=== PATIENT | male | born 1970 | race Caucasian/White ===

== ENCOUNTER 2018-06-02 20:35 | Emergency (ER) | payer MEDICAID, OTHER ==
[~2018-06-02] VITALS: Ht 162.6 cm; Wt 58.0 kg
[~2018-06-02 20:35] MED LIST: ASPI-1158 PO; CALC-30 PO; FERR325T6 PO; GABA-531 PO; INSU100I28 SQ; INSU100V3 SUBCUT; NIFE30TA83 PO; SEVE800T8 PO
[2018-06-02] MEDS ORDERED: SODIUM CHLORIDE 0.9% 250 ML IV ONE (21:11)
[2018-06-02 22:04] LABS: BASOPHILS % 1.2 % (0.0-2.0); EOSINOPHILS % 5.2 % (0.0-5.0); HEMATOCRIT. 38.1 % (42.0-52.0); HEMOGLOBIN. 12.6 g/dL (14.0-18.0); LYMPHOCYTES % 26.2 % (20.0-50.0); MEAN CORPUSCULAR HEMOGLOBIN 28.7 pg (28.0-32.0); MEAN CORPUSCULAR VOLUME 86.4 fL (80.0-94.0); MONOCYTES % 8.5 % (2.0-8.0); NEUTROPHILS % 58.9 % (40.0-76.0); PLATELET 239 x1000/uL (130-400); RED BLOOD CELL COUNT 4.41 mill/uL (4.7-6.1); RED CELL DISTRIBUTION WIDTH 14.5 % (11.6-14.6)
[2018-06-02 22:09] LABS: CHLORIDE 98 mEq/L (98-107)
[2018-06-02 22:18] LABS: CLARITY URINE CLEAR (CLEAR); COLOR URINE YELLOW (YELLOW); KETONES URINE NEGATIVE (NEGATIVE); LEUKOCYTE ESTERASE URINE NEGATIVE (NEGATIVE); NITRITE URINE NEGATIVE (NEGATIVE); OCCULT BLOOD URINE TRACE (NEGATIVE); PH URINE 7.5 (4.5-8.0); PROTEIN URINE 4+ (NEGATIVE); SPECIFIC GRAVITY URINE 1.013 (1.005-1.030); UROBILINOGEN URINE 0.2 E.U./dL (0.2-1.0)
[2018-06-03 00:41] VITALS: BP 155/94
== END 2018-06-03 00:49 | disposition home or self-care (01) ==
LOC: ER 20:35
DX: R42 Dizziness and giddiness (principal); I12.0 Hypertensive chronic kidney disease with stage 5 chronic kidney disease or end stage renal disease; E11.22 Type 2 diabetes mellitus with diabetic chronic kidney disease; N18.6 End stage renal disease; Z99.2 Dependence on renal dialysis; Z79.4 Long term (current) use of insulin
CPT/HCPCS: 36415; 71045; 84484; 93005; 96360; 96361; 99284; J7050

== ENCOUNTER 2019-07-08 11:10 | Inpatient (IN) | payer MEDICAID ==
[2019-07-08] VITALS (35 sets, daily range): BP systolic 59–168; BP diastolic 26–134
[~2019-07-08] VITALS: Ht 175.3 cm; Wt 56.3 kg
[~2019-07-08 11:10] MED LIST changes: +NIFE-33 PO; -NIFE30TA83 PO
[2019-07-08] MEDS ORDERED: SODIUM CHLORIDE 0.9% 1,000 ML IV ONE (11:53)
[2019-07-08] MEDS ORDERED: SODIUM POLYSTYRENE SULFONATE 15 G/60 ML BOT PO ONE (12:00)
[2019-07-08] MEDS ORDERED: SODIUM BICARBONATE 8.4% 1 MEQ/ML 50ML SYR IV ONE (12:00)
[2019-07-08] MEDS ORDERED: INSULIN REGULAR (HUMULIN R) UD 100 UNITS/ML SYR IV ONE (12:00)
[2019-07-08] MEDS ORDERED: ALBUTEROL (0.083%) 2.5MG/3ML NEB HHN ONE (12:00)
[2019-07-08] MEDS ORDERED: CALCIUM CHLORIDE 1GM/10ML SYR IV ONE (12:00)
[2019-07-08] MEDS ORDERED: DEXTROSE 50% WATER 50ML SYRINGE IV ONE (12:00)
[2019-07-08] MEDS ORDERED: INSULIN REGULAR (HUMULIN R) 300UNITS/3ML IV ONE (12:15)
[2019-07-08 12:35] LABS: BASOPHILS % 0.3 % (0.0-2.0); HEMATOCRIT. 26.4 % (42.0-52.0); HEMOGLOBIN. 8.9 g/dL (14.0-18.0); LYMPHOCYTES % 7.5 % (20.0-50.0); MEAN CORPUSCULAR HEMOGLOBIN 33.4 pg (28.0-32.0); MEAN PLATELET VOLUME 11.6 fl (7.4-10.4); MONOCYTES % 3.8 % (2.0-8.0); NEUTROPHILS % 88.4 % (40.0-76.0); PLATELET 73 x1000/uL (130-400); RED BLOOD CELL COUNT 2.66 mill/uL (4.7-6.1)
[2019-07-08 12:41] LABS: INR 2.2; PROTHROMBIN TIME 22.1 sec (9.6-11.0)
[2019-07-08 12:43] LABS: CHLORIDE 89 mEq/L (98-107)
[2019-07-08 13:10] LABS: PLATELET ESTIMATE DECREASED
[2019-07-08] MEDS ORDERED: PHYTONADIONE 10MG/ML AMP SUBCUT ONE (13:15)
[2019-07-08] MEDS ORDERED: LIDOCAINE HCL 1% 20ML VIAL (Pyxis) INJ ONE (14:46)
[2019-07-08 15:06] LABS: HEPATITIS B SURFACE ANTIGEN NEGATIVE
[2019-07-08 15:36] LABS: HEPATITIS A AB IGM NEGATIVE (NEGATIVE)
[2019-07-08] MEDS ORDERED: LORAZEPAM 2MG/ML CPJ IV PRN (16:15)
[2019-07-08] MEDS ORDERED: ACETAMINOPHEN 325MG TABLET PO PRN (16:15)
[2019-07-08] MEDS ORDERED: IPRATROPIUM/ALBUTEROL 0.5-3(2.5)MG/3ML NEB NEB PRN (16:15)
[2019-07-08] MEDS ORDERED: ENOXAPARIN 40MG/0.4ML SYR SUBCUT SCH (16:15)
[2019-07-08] MEDS ORDERED: CLONIDINE 0.1MG TABLET PO PRN (16:15)
[2019-07-08] MEDS ORDERED: DOCUSATE SODIUM 100MG CAPSULE PO PRN (16:15)
[2019-07-08] MEDS ORDERED: HYDROCODONE/ACETAMINOPHEN 10/325MG TABLET PO PRN (16:15)
[2019-07-08] MEDS ORDERED: MAGNESIUM/ALUMINUM HYDROXIDE/SIMETHICONE 30ML UDC PO PRN (16:15)
[2019-07-08] MEDS ORDERED: DIPHENHYDRAMINE 50MG/ML VIAL IV PRN (16:15)
[2019-07-08] MEDS ORDERED: ONDANSETRON HCL 4MG/2ML INJ IV PRN (16:15)
[2019-07-08] MEDS ORDERED: HYDRALAZINE 20MG/ML VIAL IV PRN (16:15)
[2019-07-08] MEDS ORDERED: GUAIFENESIN 200MG/10ML SUGAR FREE UDC PO PRN (16:15)
[2019-07-08] MEDS ORDERED: BLOOD SUGAR DIAGNOSTIC STRIP TEST SCH (17:00)
[2019-07-08] MEDS ORDERED: INSULIN LISPRO 100 UNITS/ML SUBCUT SCH (17:14)
[2019-07-08] MEDS ORDERED: NOREPINEPHRINE 16 MG in DEXT 5% WATER 234 ML IV PRN (18:15)
[2019-07-08] MEDS ORDERED: DOPAMINE 400MG/250ML PREMIX 250 ML IV PRN (19:00)
[2019-07-08] MEDS ORDERED: DEXTROSE 50% WATER 50ML SYRINGE IV PRN (19:02)
[2019-07-08] MEDS ORDERED: ASPI-1497 MT (19:45)
[2019-07-08] MEDS ORDERED: LISI40TA4 MT (19:45)
[2019-07-08] MEDS ORDERED: CHOL200059 MT (19:45)
[2019-07-08] MEDS ORDERED: LEVO50TA8 MT (19:45)
[2019-07-08] MEDS ORDERED: CALC667T2 MT (19:45)
[2019-07-08] MEDS: EPOETIN ALFA 10000UNITS/ML VIAL SUBCUT SCH (22:38)
[2019-07-08] MEDS: SODIUM CHLORIDE 0.9% INJ 3ML FLUSH IVF SCH (22:40)
[2019-07-08] MEDS: DEXTROSE 50% WATER 50ML SYRINGE IV PRN (22:50)
[2019-07-08 23:51] LABS: HEMATOCRIT 29.5 % (42.0-52.0); HEMOGLOBIN 9.7 g/dL (14.0-18.0)
[2019-07-08 23:57] LABS: BASOPHILS % 0.3 % (0.0-2.0); EOSINOPHILS % 0.1 % (0.0-5.0); HEMATOCRIT. 29.4 % (42.0-52.0); HEMOGLOBIN. 9.7 g/dL (14.0-18.0); LYMPHOCYTES % 8.5 % (20.0-50.0); MEAN CORPUSCULAR HEMOGLOBIN 32.1 pg (28.0-32.0); MEAN CORPUSCULAR VOLUME 97.8 fL (80.0-94.0); MEAN PLATELET VOLUME 10.8 fl (7.4-10.4); NEUTROPHILS % 88.1 % (40.0-76.0); PLATELET 59 x1000/uL (130-400); RED BLOOD CELL COUNT 3.01 mill/uL (4.7-6.1); RED CELL DISTRIBUTION WIDTH 22.1 % (11.6-14.6)
[2019-07-09] VITALS (75 sets, daily range): BP systolic 64–229; BP diastolic 18–118
[2019-07-09] MEDS ORDERED: BLOOD SUGAR DIAGNOSTIC STRIP TEST SCH
[2019-07-09] MEDS: DEXTROSE 50% WATER 50ML SYRINGE IV PRN ×5 (00:15→16:31)
[2019-07-09 00:46] LABS: CHLORIDE 102 mEq/L (98-107)
[2019-07-09 00:54] LABS: CREATINE KINASE 376 IU/L (39-308)
[2019-07-09 00:56] LABS: CREATINE KINASE MB FRACTION 24.9 ng/mL (0.5-3.6)
[2019-07-09] MEDS ORDERED: DEXTROSE 10% WATER 1,000 ML IV SCH (03:00)
[2019-07-09] MEDS: DEXT 10% WATER 1,000 ML IV SCH (03:32)
[2019-07-09] MEDS: BLOOD SUGAR DIAGNOSTIC STRIP TEST SCH ×11 (04:12→22:34)
[2019-07-09 05:21] LABS: HEMATOCRIT. 27.5 % (42.0-52.0); HEMOGLOBIN. 9.3 g/dL (14.0-18.0); MEAN CORPUSCULAR HEMOGLOBIN 32.9 pg (28.0-32.0); MEAN CORPUSCULAR VOLUME 97.1 fL (80.0-94.0); MEAN PLATELET VOLUME 10.9 fl (7.4-10.4); PLATELET 60 x1000/uL (130-400); RED BLOOD CELL COUNT 2.83 mill/uL (4.7-6.1)
[2019-07-09 05:29] LABS: CHLORIDE 100 mEq/L (98-107)
[2019-07-09 05:37] LABS: PHOSPHORUS 5.7 mg/dL (2.5-4.9)
[2019-07-09 05:40] LABS: CREATINE KINASE 256 IU/L (39-308)
[2019-07-09] MEDS: INSULIN LISPRO 100 UNITS/ML SUBCUT SCH ×4 (06:00→17:12)
[2019-07-09] MEDS: SODIUM CHLORIDE 0.9% INJ 3ML FLUSH IVF SCH ×3 (06:00→21:00)
[2019-07-09 11:34] LABS: PLATELET ESTIMATE DECREASED
[2019-07-09] MEDS: MORPHINE SULFATE 2 MG/ML CPJ (NOT FOR IM USE) IV PRN ×2 (11:46→16:10)
[2019-07-09 12:07] LABS: BG CARBOXYHEMOGLOBIN 1.6 % (0.5-1.5); BG DEOXYHEMOGLOBIN 8.1 % (0.0-5.0); BG FRACTION INSPIRED OXYGEN 36; BG HCO3 ACT 25.6 mmol/L (22.0-26.0); BG METHEMOGLOBIN 0.3 % (0.0-1.5); BG OXYGEN SATURATION 91.7 % (92.0-98.5); BG PO2 70.5 mmHg (75.0-100.0); BG SAMPLE SITE RIGHT BRACHIAL; BG VENT MODE NASAL CANNULA
[2019-07-09] MEDS: IPRATROPIUM/ALBUTEROL 0.5-3(2.5)MG/3ML NEB HHN SCH ×3 (12:50→20:42)
[2019-07-09 14:09] LABS: D-DIMER 7.25 mg/L FEU (<0.50)
[2019-07-09] MEDS: PIPERACILLIN/TAZOBACTAM 2.25 G in DEXTROSE 5% WATER 50 ML IV SCH ×2 (14:36→21:07)
[2019-07-09] MEDS: SEVELAMER CARBONATE 800 MG TABLET PO SCH (17:27)
[2019-07-09] MEDS ORDERED: VANCOMYCIN 1500MG in DEXTROSE 5% WATER 250ML IV SCH (21:30)
[2019-07-09 22:00] LABS: HEMATOCRIT 22.4 % (42.0-52.0); HEMOGLOBIN 7.4 g/dL (14.0-18.0)
[2019-07-10] VITALS (75 sets, daily range): BP systolic 119–152; BP diastolic 48–103
[2019-07-10] MEDS: BLOOD SUGAR DIAGNOSTIC STRIP TEST SCH ×13 (00:30→23:46)
[2019-07-10] MEDS: IPRATROPIUM/ALBUTEROL 0.5-3(2.5)MG/3ML NEB HHN SCH ×6 (00:38→21:15)
[2019-07-10] MEDS: DEXT 10% WATER 1,000 ML IV SCH ×2 (02:54→12:06)
[2019-07-10] MEDS: SODIUM CHLORIDE 0.9% INJ 3ML FLUSH IVF SCH ×3 (05:12→21:13)
[2019-07-10 05:30] LABS: PROTHROMBIN TIME 20.1 sec (9.6-11.0)
[2019-07-10 05:34] LABS: HEMATOCRIT. 25.4 % (42.0-52.0); HEMOGLOBIN. 8.5 g/dL (14.0-18.0); MEAN CORPUSCULAR HEMOGLOBIN 33.3 pg (28.0-32.0); MEAN CORPUSCULAR VOLUME 98.9 fL (80.0-94.0); RED BLOOD CELL COUNT 2.56 mill/uL (4.7-6.1); RED CELL DISTRIBUTION WIDTH 22.4 % (11.6-14.6)
[2019-07-10 05:47] LABS: PHOSPHORUS 6.5 mg/dL (2.5-4.9)
[2019-07-10] MEDS: INSULIN LISPRO 100 UNITS/ML SUBCUT SCH ×5 (06:00→23:55)
[2019-07-10 06:05] LABS: PLATELET 50 x1000/uL (130-400)
[2019-07-10] MEDS: SEVELAMER CARBONATE 800 MG TABLET PO SCH ×3 (06:13→17:00)
[2019-07-10] MEDS: PIPERACILLIN/TAZOBACTAM 2.25 G in DEXTROSE 5% WATER 50 ML IV SCH ×3 (06:14→21:33)
[2019-07-10 07:01] LABS: NUCLEATED RED BLOOD CELLS 1 /100 WBC; PLATELET ESTIMATE DECREASED
[2019-07-10] MEDS: DEXTROSE 50% WATER 50ML SYRINGE IV PRN (08:10)
[2019-07-10] MEDS ORDERED: PHYTONADIONE 10 MG in DEXTROSE 5% WATER 49 ML IV NR (14:30)
[2019-07-10] MEDS: EPOETIN ALFA 10000UNITS/ML VIAL SUBCUT SCH (21:33)
[2019-07-11] VITALS (36 sets, daily range): BP systolic 109–168; BP diastolic 63–104
[2019-07-11] MEDS: BLOOD SUGAR DIAGNOSTIC STRIP TEST SCH ×11 (01:45→22:17)
[2019-07-11] MEDS: IPRATROPIUM/ALBUTEROL 0.5-3(2.5)MG/3ML NEB HHN SCH ×6 (02:16→20:01)
[2019-07-11] MEDS: SODIUM CHLORIDE 0.9% INJ 3ML FLUSH IVF SCH ×3 (05:07→21:12)
[2019-07-11] MEDS: INSULIN LISPRO 100 UNITS/ML SUBCUT SCH ×3 (06:00→18:00)
[2019-07-11 06:07] LABS: BASOPHILS % 0.4 % (0.0-2.0); EOSINOPHILS % 1.1 % (0.0-5.0); HEMATOCRIT. 26.7 % (42.0-52.0); HEMOGLOBIN. 8.8 g/dL (14.0-18.0); LYMPHOCYTES % 13.3 % (20.0-50.0); MEAN CORPUSCULAR HEMOGLOBIN 33.1 pg (28.0-32.0); MEAN CORPUSCULAR VOLUME 99.8 fL (80.0-94.0); MEAN PLATELET VOLUME 10.7 fl (7.4-10.4); MONOCYTES % 2.4 % (2.0-8.0); NEUTROPHILS % 82.8 % (40.0-76.0); RED BLOOD CELL COUNT 2.67 mill/uL (4.7-6.1); RED CELL DISTRIBUTION WIDTH 23.6 % (11.6-14.6)
[2019-07-11 06:13] LABS: INR 1.6; PARTIAL THROMBOPLASTIN TIME 46.3 sec (23.4-31.0); PROTHROMBIN TIME 16.5 sec (9.6-11.0)
[2019-07-11 06:16] LABS: CHLORIDE 99 mEq/L (98-107)
[2019-07-11] MEDS: PIPERACILLIN/TAZOBACTAM 2.25 G in DEXTROSE 5% WATER 50 ML IV SCH ×2 (06:21→14:31)
[2019-07-11] MEDS: SEVELAMER CARBONATE 800 MG TABLET PO SCH ×3 (06:21→17:00)
[2019-07-11 06:25] LABS: PHOSPHORUS 4.8 mg/dL (2.5-4.9)
[2019-07-11 07:04] LABS: PLATELET 39 x1000/uL (130-400)
[2019-07-11] MEDS ORDERED: VANCOMYCIN 750 MG PREMIX 150 ML IV NR (10:00)
[2019-07-11] MEDS ORDERED: CARVEDILOL 3.125 MG TABLET PO NR (11:30)
[2019-07-11 13:21] LABS: T4 FREE 1.01 ng/dL (0.76-1.46)
[2019-07-11 18:12] LABS: VITAMIN B12 SERUM > 2000.0 pg/mL (211-911)
[2019-07-11] MEDS ORDERED: CEFEPIME 1,000 MG in DEXTROSE 5% WATER 50 ML IV SCH (20:00)
[2019-07-11] MEDS ORDERED: METRONIDAZOLE 500 MG PREMIX 100 ML IV SCH (20:30)
[2019-07-11] MEDS ORDERED: CARVEDILOL 3.125 MG TABLET PO SCH (21:00)
[2019-07-12] VITALS: BP 110/74
[2019-07-12] MEDS: BLOOD SUGAR DIAGNOSTIC STRIP TEST SCH
[2019-07-12] MEDS: INSULIN LISPRO 100 UNITS/ML SUBCUT SCH
[2019-07-12] MEDS: DEXT 10% WATER 1,000 ML IV SCH (00:01)
[2019-07-12] MEDS: IPRATROPIUM/ALBUTEROL 0.5-3(2.5)MG/3ML NEB HHN SCH (00:15)
[2019-07-12 01:00] VITALS: BP 112/71
[2019-07-12 02:00] VITALS: BP 114/72
[2019-07-12 02:15] VITALS: BP 97/66
[2019-07-14 15:06] LABS: PTT-LA 55.1 sec (0.0-51.9)
[2019-07-14 17:09] LABS: ANA IFA Negative (.)
[2019-07-15 09:09] LABS: PTT-LA MIX 48.8 sec (0.0-48.9)
[2019-07-16 04:08] LABS: HEXAGONAL PHASE PHOSPHOLIPID 0 sec (0-11); LUPUS ANTICOAG INTERPRETATION Comment: (.); PTT-LA INCUB MIX 54.7 sec (0.0-48.9)
== END 2019-07-12 02:26 | disposition expired | DRG 133 ==
LOC: ER 11:10 → EDBEDREQ 13:01 → MICUSO 13:20 → EDBEDREQ 13:23 → EDBEDREQSVC 13:23 → ENRESERV 13:34
PROVIDERS: ADMIT Internal Medicine; ATTEND Internal Medicine
PROC: 30233N1 Transfusion of Nonautologous Red Blood Cells into Peripheral Vein, Percutaneous Approach (ICD-10-PCS; principal; 2019-07-08)
PROC: B54MZZA Ultrasonography of Right Upper Extremity Veins, Guidance (ICD-10-PCS; 2019-07-08)
PROC: 05HY33Z Insertion of Infusion Device into Upper Vein, Percutaneous Approach (ICD-10-PCS; 2019-07-08)
PROC: 5A1D70Z Performance of Urinary Filtration, Intermittent, Less than 6 Hours Per Day (ICD-10-PCS; 2019-07-08)
PROC: 5A1D70Z Performance of Urinary Filtration, Intermittent, Less than 6 Hours Per Day (ICD-10-PCS; 2019-07-10)
PROC: 5A1D70Z Performance of Urinary Filtration, Intermittent, Less than 6 Hours Per Day (ICD-10-PCS; 2019-07-12)
DX: J96.00 Acute respiratory failure, unspecified whether with hypoxia or hypercapnia (principal); E43 Unspecified severe protein-calorie malnutrition; G93.41 Metabolic encephalopathy; I13.2 Hypertensive heart and chronic kidney disease with heart failure and with stage 5 chronic kidney disease, or end stage renal disease; J84.9 Interstitial pulmonary disease, unspecified; D69.6 Thrombocytopenia, unspecified; D68.9 Coagulation defect, unspecified; E11.22 Type 2 diabetes mellitus with diabetic chronic kidney disease; Z66 Do not resuscitate; E11.40 Type 2 diabetes mellitus with diabetic neuropathy, unspecified; K72.90 Hepatic failure, unspecified without coma; E11.36 Type 2 diabetes mellitus with diabetic cataract; E83.39 Other disorders of phosphorus metabolism; I27.20 Pulmonary hypertension, unspecified; E11.649 Type 2 diabetes mellitus with hypoglycemia without coma; N18.6 End stage renal disease; D64.9 Anemia, unspecified; E87.1 Hypo-osmolality and hyponatremia; E02 Subclinical iodine-deficiency hypothyroidism; E78.5 Hyperlipidemia, unspecified; I25.10 Atherosclerotic heart disease of native coronary artery without angina pectoris; I42.9 Cardiomyopathy, unspecified; I45.10 Unspecified right bundle-branch block; L53.8 Other specified erythematous conditions; I50.23 Acute on chronic systolic (congestive) heart failure; K73.9 Chronic hepatitis, unspecified; K76.1 Chronic passive congestion of liver; N40.0 Benign prostatic hyperplasia without lower urinary tract symptoms; N52.9 Male erectile dysfunction, unspecified; R18.8 Other ascites; R62.7 Adult failure to thrive; R65.10 Systemic inflammatory response syndrome (SIRS) of non-infectious origin without acute organ dysfunction; Z79.4 Long term (current) use of insulin; Z79.899 Other long term (current) drug therapy; Z83.3 Family history of diabetes mellitus; Z86.73 Personal history of transient ischemic attack (TIA), and cerebral infarction without residual deficits; Z87.891 Personal history of nicotine dependence; Z99.2 Dependence on renal dialysis; Z68.1 Body mass index [BMI] 19.9 or less, adult; Z79.82 Long term (current) use of aspirin
CPT/HCPCS: 36415; 36600; 71045; 74176; 76937; 80048; 80053; 80202; 82140; 82375; 82550; 82553; 82607; 82805; 82962; 83605; 83615; 83735; 84100; 84134; 84145; 84439; 84443; 84481; 84484; 85014; 85018; 85025; 85379; 85384; 85613; 85732; 86157; 86256; 86705; 86709; 86803; 86850; 86880; 86900; 86920; 87340; 93005; 93306; 93970; 93971; 94640; 96365; 96372; 96375; 99291; C1725; J0692; J0885; J1265; J1815; J2060; J2270; J2543; J3370; J3430; J3490; J7030; J7040; J7060; P9016